=== PATIENT | male | born 1975 | race Caucasian/White ===

== ENCOUNTER 2024-07-30 19:32 | Emergency (ER) | payer OTHER, SELFPAY ==
[2024-07-30] VITALS (7 sets, daily range): BP systolic 124–139; BP diastolic 80–88; PULSE 69–75; RESP 16–17; TEMP 36.4; O2SAT 95–99; BMI 33.0
--- NOTE | 2024-07-30 19:46 | DI.RAD.S_ITS ---
PROCEDURE: XR CHEST 1V INDICATIONS: chest pain TECHNIQUE: One view of the chest was acquired. COMPARISON: None. FINDINGS: Surgical changes and devices: Of surgical changes of the left humerus and lower neck. Lungs and pleura: Lungs are clear. No pleural effusions or pneumothorax. Mediastinum: Mediastinal contours appear normal. Heart size is normal. Bones and chest wall: No suspicious bony lesions. Overlying soft tissues appear unremarkable. IMPRESSION: No acute cardiopulmonary abnormality is seen. Dictated by: Richard Medina M.D. on 07/30/2024 at 20:10 Approved by: Richard Medina M.D. on 07/30/2024 at 20:12
--- NOTE | 2024-07-30 19:51 | EKG_ITS ---
[place] [id number] [place] [id number] Test Date: 2024-07-30 Pat Name: Brien Chery Department: Located Within [facility] Room: Gender: Male Medical Planner: SHILPA YU : 1975 Requested By: Order Number: [id number] Reading MD: Donnie Murrell Measurements Intervals Jermyn Rate: 74 P: 36 GA: 138 QRS: 59 QRSD: 98 T: 31 QT: 406 QTc: 450 Interpretive Statements Sinus rhythm with fusion complexes Electronically Signed On 07-31-2024 19:42:57 PST by Donnie Murrell
[2024-07-30 19:58] LABS: Add Manual Diff / Slide Review NO; Basophils Absolute Auto 0 /uL (0-100); Basophils Percent Auto 0.3 % (0-2); Eosinophils Absolute Auto 300 /uL (0-450); Eosinophils Percent Auto 2.6 % (2-4); Hematocrit 43.1 % (41-53); Hemoglobin 14.7 g/dL (13.5-17.5); Lymphocytes Absolute Auto 1900 /uL (1100-4500); Lymphocytes Percent Auto 18.9 % (25-40); Mean Corpuscular HGB Conc 34.2 % (30-36); Mean Corpuscular Hemoglobin 29.8 PG (26-34); Mean Corpuscular Volume 87.2 fL (80-100); Monocytes Absolute Auto 600 /uL (0-900); Monocytes Percent Auto 5.5 % (3-14); Neutrophils Absolute Auto 7400 /uL (1500-7000); Neutrophils Percent Auto 72.7 % (50-75); Platelet Count 283 X10^3/uL (150-400); Red Blood Cell Count 4.95 X10^6/uL (4.5-5.9); Red Cell Distribution Width 12.9 % (11.6-14.8); White Blood Cell Count 10.2 X10^3/uL (4.5-11.0)
[2024-07-30 20:05] LABS: INR 0.9 (0.9-1.3)
[2024-07-30 20:07] LABS: PTT Partial Thromboplastin Tim 35 SECONDS (25.1-36.5)
[2024-07-30 20:09] LABS: Alanine Aminotransferase 74 IU/L (<50); Albumin 4.5 g/dL (3.5-5.0); Albumin Globulin Ratio 1.5 (1.0-2.8); Alkaline Phosphatase 71 U/L (38-126); Aspartate Aminotransferase 41 IU/L (17-59); BUN Creatinine Ratio 19.2 (6-22); Bilirubin Total 0.5 mg/dL (0.2-1.3); Blood Urea Nitrogen 19 mg/dL (9-20); Calcium 9.3 mg/dL (8.4-10.2); Carbon Dioxide 27 mmol/L (22-32); Chloride 104 mmol/L (98-107); Creatine Kinase 99 U/L (55-170); Estimated Glomerular Filt Rate > 60 mL/min (>60); Globulin 3.1 g/dL (1.7-4.1); Glucose 124 mg/dL (70-100); HEMOLYSIS 27 (0-50); Lipase 335 U/L (23-300); Magnesium 1.9 mg/dL (1.6-2.3); Potassium 3.9 mmol/L (3.4-5.1); Sodium 136 mmol/L (137-145); Total Protein 7.6 g/dL (6.3-8.2)
[2024-07-30 20:21] LABS: NT-proBNP (BNP-Adult 18+) < 20 pg/mL (<125); Troponin I < 0.012 ng/mL (0.01-0.034)
--- NOTE | 2024-07-30 21:42 | DI.CT.S_ITS ---
PROCEDURE: CT HEAD/BRAIN WO CON INDICATIONS: HTN , vision changes and headache TECHNIQUE: Noncontrast 4.5 mm thick angled axial sections acquired from the foramen magnum to the vertex, with coronal and sagittal reformats. For radiation dose reduction, the following was used: automated exposure control, adjustment of mA and/or kV according to patient size. COMPARISON: None. FINDINGS: Image quality: Diagnostic. CSF spaces: Basal cisterns are patent. No extra-axial fluid collections. Ventricles are normal in size and shape. Brain: No midline shift. No intracranial masses or hemorrhage. [place]-white matter interface is normal. Skull and face: Calvarium and visualized facial bones are intact, without suspicious lesions. Sinuses: Mild mucosal thickening of the left sphenoid locule. IMPRESSION: No acute intracranial pathology. Dictated by: Richard Medina M.D. on 07/30/2024 at 22:03 Approved by: Richard Medina M.D. on 07/30/2024 at 22:06
--- NOTE | 2024-07-30 22:59 | ED_ITS ---
HPI - Neuro Symptoms/Deficit General Chief Complaint: Neuro Symptoms/Deficit Stated Complaint: high bp, blurry vision Time Seen by Provider: 07/30/24 21:41 Source: patient and family Mode of arrival: Ambulatory History of Present Illness HPI Narrative: 49-year-old male. No prior history hypertension. Earlier today started noticing that he was having some blurry vision and a headache. He describes the blurry vision is like having tearing in his eyes. He took his blood pressure at home and it was elevated with a systolic in the 150s. He does not take his blood pressure on a regular basis but when he does it was normally less than 120. Reports no numbness and tingling upper and lower extremities. No chest pain. No shortness of breath. On Anticoagulants: No Related Data Allergies Allergy/AdvReac Type Severity Reaction Status Date / Time No Known Drug Allergies Allergy Verified 07/30/24 19:40 Review of Systems Review of Systems ROS Unobtainable: All systems reviewed & are unremarkable except as noted in HPI and below Hematologic/Lymphatic On Anticoagulants: No Patient History Social History Smoking Status: Never smoker Smoking Status: Never smoker Alcohol type: wine Exam Initial Vital Signs Initial Vital Signs: Vital Signs Temperature 97.6 F 07/30/24 19:40 Pulse Rate 75 07/30/24 19:40 Respiratory Rate 17 07/30/24 19:40 Blood Pressure 139/88 07/30/24 19:40 Pulse Oximetry 97 07/30/24 19:40 Oxygen Delivery Method Room Air 07/30/24 19:40 Const General: cooperative, comfortable and No ill appearing [facility] Head: normal to inspection and normocephalic Resp Effort & Inspection: normal respiratory effort Auscultation: clear to auscultation bilaterally Cardio Rate: regular rate Rhythm: regular rhythm GI Inspection: normal to inspection and non-distended Skin General: no rashes or lesions noted Neuro General: patient alert, patient awake and moves all extremities Extrem General: No edema Course Orders Ordered: ED Orders 07/30/24 19:45 Complete Blood Count AUTO DIFF Stat Comprehensive Metabolic Panel Stat Lipase Stat Magnesium Stat NT-proBNP (BNP-Adult 18+) Stat PTT Partial Thromboplastin Freddy Stat Prothrombin Time INR Stat Troponin & CK Cardiac Panel Stat 07/30/24 19:46 XR chest 1V Stat EKG-12 Lead Stat 07/30/24 21:42 CT head/brain wo con Stat Troponin & CK Cardiac Panel Stat Vital Signs Vital signs: Vital Signs - 8 hr 07/30/24 21:29 07/30/24 21:30 07/30/24 22:00 Pulse Rate 72 72 70 Respiratory Rate Blood Pressure 135/80 Pulse Oximetry 99 97 96 Oxygen Delivery Method 07/30/24 22:30 07/30/24 23:00 07/30/24 23:06 Pulse Rate 69 69 75 Respiratory Rate 16 Blood Pressure 124/84 Pulse Oximetry 96 98 95 Oxygen Delivery Method Room Air Room Air MDM - Neuro Symptoms/Deficit Lab Data Attestation: I reviewed the patient's lab results. 07/30/24 19:45 07/30/24 19:45 Labs: Lab Results 07/30/24 Range/Units 19:45 WBC 10.2 (4.5-11.0) X10^3/uL RBC 4.95 (4.5-5.9) X10^6/uL Hgb 14.7 (13.5-17.5) g/dL Hct 43.1 (41-53) % MCV 87.2 (80-100) fL MCH 29.8 (26-34) PG MCHC 34.2 (30-36) % RDW 12.9 (11.6-14.8) % Plt Count 283 (150-400) X10^3/uL Neut % (Auto) 72.7 (50-75) % Lymph % (Auto) 18.9 L (25-40) % Carbon % (Auto) 5.5 (3-14) % Eos % (Auto) 2.6 (2-4) % Baso % (Auto) 0.3 (0-2) % Neut # (Auto) 7400 H (6586-0450) /uL Lymph # (Auto) 1900 (0475-6574) /uL Carbon # (Auto) 600 (0-900) /uL Eos # (Auto) 300 (0-450) /uL Baso # (Auto) 0 (0-100) /uL PT 10.0 (9.4-12.5) SECONDS INR 0.9 (0.9-1.3) APTT 35 (25.1-36.5) SECONDS Sodium 136 L (137-145) mmol/L Potassium 3.9 (3.4-5.1) mmol/L Chloride 104 (98-107) mmol/L Carbon Dioxide 27 (22-32) mmol/L BUN 19 (9-20) mg/dL Creatinine 0.99 (0.66-1.25) mg/dL Estimated GFR > 60 (>60) mL/min BUN/Creatinine Ratio 19.2 (6-22) Glucose 124 H (70-100) mg/dL Calcium 9.3 (8.4-10.2) mg/dL Magnesium 1.9 (1.6-2.3) mg/dL Total Bilirubin 0.5 (0.2-1.3) mg/dL AST 41 (17-59) IU/L ALT 74 H (<50) IU/L Alkaline Phosphatase 71 (38-126) U/L Total Creatine Kinase 99 (55-170) U/L Troponin I < 0.012 (0.01-0.034) ng/mL NT-Pro-B Natriuret Pep < 20 (<125) pg/mL Total Protein 7.6 (6.3-8.2) g/dL Albumin 4.5 (3.5-5.0) g/dL Globulin 3.1 (1.7-4.1) g/dL Albumin/Globulin Ratio 1.5 (1.0-2.8) Lipase 335 H (23-300) U/L Imaging Data Chest x-ray: Radiologist's Impression: PROCEDURE: XR CHEST 1V INDICATIONS: chest pain TECHNIQUE: One view of the chest was acquired. COMPARISON: None. FINDINGS: Surgical changes and devices: Of surgical changes of the left humerus and lower neck. Lungs and pleura: Lungs are clear. No pleural effusions or pneumothorax. Mediastinum: Mediastinal contours appear normal. Heart size is normal. Bones and chest wall: No suspicious bony lesions. Overlying soft tissues appear unremarkable. IMPRESSION: No acute cardiopulmonary abnormality is seen. CT scan - head: Radiologist's Impression: PROCEDURE: CT HEAD/BRAIN WO CON INDICATIONS: HTN , vision changes and headache TECHNIQUE: Noncontrast 4.5 mm thick angled axial sections acquired from the foramen magnum to the vertex, with coronal and sagittal reformats. For radiation dose reduction, the following was used: automated exposure control, adjustment of mA and/or kV according to patient size. COMPARISON: None. FINDINGS: Image quality: Diagnostic. CSF spaces: Basal cisterns are patent. No extra-axial fluid collections. Ventricles are normal in size and shape. Brain: No midline shift. No intracranial masses or hemorrhage. [place]-white matter interface is normal. Skull and face: Calvarium and visualized facial bones are intact, without suspicious lesions. Sinuses: Mild mucosal thickening of the left sphenoid locule. IMPRESSION: No acute intracranial pathology. ECG Data Attestation: I personally reviewed and interpreted this ECG as follows: Interpretation: Sinus rhythm Ventricular rate is 74 Artifact noted in V2 Normal QRS No ST T wave changes MDM Narrative Medical decision making narrative: Blood pressure improved without any specific intervention here in the ER. Head CT is unremarkable. Workup is unremarkable. Low suspicion for ACS, TIA, CVA, acute renal failure, CHF. His vision symptoms have now completely resolved. He does have a slight headache. He declined the offer for Tylenol. Had a discussion with him regarding blood pressure. Discussed taking his blood pressure at home. Discussed that he was primary doctor for follow-up. He expressed understanding and agreement with the plan. Discharge Plan Departure Patient Disposition: Home Clinical Impression: Hypertension, Headache, Alteration in vision Instructions: DI for High Blood Pressure Activity Restrictions/Additional Instructions: I do recommend that you take your blood pressure at home on a regular basis like we discussed. Contact your primary care doctor for a follow-up. Return to the emergency department for new or worsening symptoms. Stand Alone Forms: Patient Portal/API/Survey
== END 2024-07-30 23:06 | disposition home or self-care (01) ==
PROVIDERS: Emergency Provider Emergency Medicine
DX: I10 Essential (primary) hypertension (principal); R51.9 Headache, unspecified; H53.8 Other visual disturbances
CPT/HCPCS: 70450; 71045; 80053; 82550; 83690; 83735; 83880; 84484; 85025; 85610; 85730; 93005; 99281; 99284